=== PATIENT | male | born 1960 | race Caucasian/White ===

== ENCOUNTER → 2018-06-21 06:14 | Outpatient (CLI) | payer OTHER, SELFPAY ==
--- NOTE | 2018-06-21 06:48 | MRI_ITS ---
STUDY: MRI BRAIN WITHOUT CONTRAST REASON FOR EXAM: Male, 57 years old. Dizziness TECHNIQUE: Standardized multiplanar fat and water weighted pulse sequences were obtained. COMPARISON: None. FINDINGS: Normal size of the ventricles and extra-axial spaces for the patient's age. Normal white matter tracts of the supratentorial brain. Normal bilateral basal ganglia. Normal thalami. There is no extra-axial fluid accumulation. Normal flow voids within the major intracranial circulation suggesting patency by spin echo criteria. Normal sella turcica, pituitary gland, infundibular stalk, optic chiasm and hypothalamus. Normal tectal plate and pineal gland. Normal midbrain, nickie and medulla. Normal cerebellum. Normal basal cisterns. Normal bilateral temporal bones. Normal bilateral internal auditory canals. No demonstrated orbital abnormality, within the constraints of a routine brain study. there is a small right maxillary sinus retention cyst.. Normal calvarium and skull base. Normal visualized soft tissue structures. Normal visualized upper cervical spine. MRI/Brain without Contrast IMPRESSION: Normal unenhanced MRI of the brain. Electronically Signed: Andrés Valentine, at 13:16 EDT Tel , Service support ,
--- NOTE | 2018-06-21 07:25 | US_ITS ---
STUDY: ABDOMINAL ULTRASOUND - RIGHT UPPER QUADRANT REASON FOR VISIT: Male, 57 years old. Abdominal pain TECHNIQUE: Ultrasound evaluation of the right upper quadrant was performed with real-time and static amado-scale imaging. TECHNICAL QUALITY: Adequate. COMPARISON: None. FINDINGS: Liver: The liver measures 14.4 cm. There is normal echogenicity of the liver. The bile ducts are within normal limits. There is hepatic color flow. The direction of portal flow is hepatopetal. There is no demonstrated mass lesion. Gallbladder: Normal distended gallbladder. The gallbladder wall measures 3 mm. There is a negative sonographic Dykes's sign. There is no pericholecystic fluid. There are no gallstones. Common Bile Duct (C.B.D.): The common bile duct measures 4 mm. Pancreas: Normal size of the head, body and tail of the pancreas. There is normal echogenicity of the pancreas. There is no demonstrated pancreatic mass or cyst. Right Kidney: Normal size of the right kidney. The right kidney measures 11.5 x 5.3 x 5.0 cm. Normal renal cortex. The right cortex measures 1.8 cm. There is no demonstrated renal mass or cyst. There is no right hydronephrosis. US/Gallbladder IMPRESSION: Normal right upper quadrant ultrasound examination. Electronically Signed: Vito Milton DO at 22:57 EDT Tel [phone], Service support ,
--- NOTE | 2018-06-21 07:25 | CT_ITS ---
STUDY: LOW DOSE CT LUNG CANCER SCREENING REASON FOR EXAM: Male, 57 years old. Cardiovascular disease RADIATION DOSAGE (If Supplied By Facility): CTDIvol = ( 3.02 ) mGy, DLP = ( 116.26 ) mGycm TECHNIQUE: No contrast was administered. Low dose technique was utilized (average mAS-38 and kVp 120). 1.25 mm axial source images with a slice interval of 1.25-mm were reconstructed in lung windows. 2.5 mm axial source images with a slice interval of 2.5-mm were reconstructed in lung windows. 5.0 mm axial source images with a slice interval of 5.0-mm were reconstructed in soft tissue windows. Nodule measured using lung windows on PACS and/or independent workstation with automated measurement of minimum and maximum diameter. Nodule measurement reported as average diameter rounded to the nearest whole number. Growth is defined as an increase ins size of greater than 1.5 mm. COMPARISON: None. FINDINGS: Lung nodules There is a 7 mm calcified peripheral right upper lobe nodule likely representing granuloma. There is a 5 mm right upper lobe subpleural groundglass nodule on image 110. Lungs COPD: Mild. Fibrosis: None. Lymph nodes: None. Other findings: There is mild debris in the right posterior trachea. Pleural space Effusion: None. Calcification: None. Thickening: None. Heart Heart size: Normal. Coronary calcification: Mild. Pericardial effusion: None. Other findings: There is bilateral gynecomastia. Ascending aorta measures 4.3 cm Upper abdomen: None. Thorax: There is multilevel degenerative disc disease. There is anterior fusion of the lower cervical spine.. Base of neck: None. CT/Low Dose CT Lung Screening IMPRESSION: Lung-RADS category 2 - Continue annual screening with LDCT in 12 months. IMPORTANT NOTES FOR USE: ACR Lung-RADS Version 1.0 Assessment Categories Release Date: July 01, 2013 Category: Coded 0-4 bases on nodule(s) with highest degree of suspicion. Negative screen is defined as categories 1 and 2; a positive screen is defined as categories 3 and 4. Category 3 and 4A nodules that are unchanged on interval CT should be coded as category 2, and individuals returned to screening in 12 months. Category 4X: Category 3 or 4 nodules with additional imaging findings that increase the suspicion of lung cancer, such as spiculation, GGN that doubles in size in 1 year, enlarged lymph notes, etc. Category Modifiers: S (significant finding unrelated to lung cancer) and C (prior history of treated lung cancer) may be added to the 0-4 Lung-RADS Electronically Signed: Andrés Valentine, at 9:51 EDT Tel , Service support ,
--- NOTE | 2018-06-21 07:25 | CT_ITS ---
STUDY: CT CHEST WITHOUT CONTRAST REASON FOR EXAM: Male, 57 years old. Calcium scoring, family history of cardiovascular disease RADIATION DOSAGE (If Supplied By Facility): CTDIvol = ( 12.19 ) mGy, DLP = ( 195.04 ) mGycm TECHNIQUE: Transaxial imaging was performed without the administration of intravenous contrast material. Individualized dose optimization techniques were used for this CT. COMPARISON: None. FINDINGS: There is bilateral gynecomastia. Ascending aorta measures 4.3 cm Mild centrilobular and paraseptal emphysema. There is no demonstrated pleural abnormality. Normal heart and pericardium. Normal mediastinum. Normal hilar regions. Normal unenhanced pulmonary arteries. Normal aorta arch and descending thoracic aorta. There are multi-level degenerative changes of the thoracic spine. There is no demonstrated abnormality of the visualized upper abdomen. CT/CCTA Calcium Scoring IMPRESSION: Ascending aorta is aneurysmal measuring 4.3 cm. Small centrilobular paraseptal emphysema. Electronically Signed: Andrés Valentine, at 10:16 EDT Tel , Service support ,
--- NOTE | 2018-06-21 07:25 | CT_ITS ---
STUDY: CT CHEST WITHOUT CONTRAST REASON FOR EXAM: Male, 57 years old. Calcium scoring, family history of cardiovascular disease RADIATION DOSAGE (If Supplied By Facility): CTDIvol = ( 12.19 ) mGy, DLP = ( 195.04 ) mGycm TECHNIQUE: Transaxial imaging was performed without the administration of intravenous contrast material. Individualized dose optimization techniques were used for this CT. COMPARISON: None. FINDINGS: There is bilateral gynecomastia. Ascending aorta measures 4.3 cm Mild centrilobular and paraseptal emphysema. There is no demonstrated pleural abnormality. Normal heart and pericardium. Normal mediastinum. Normal hilar regions. Normal unenhanced pulmonary arteries. Normal aorta arch and descending thoracic aorta. There are multi-level degenerative changes of the thoracic spine. There is no demonstrated abnormality of the visualized upper abdomen. CT/Limited Chest CT w/CCTA IMPRESSION: Ascending aorta is aneurysmal measuring 4.3 cm. Small centrilobular paraseptal emphysema. Electronically Signed: Andrés Valentine, at 10:16 EDT Tel , Service support ,
[2018-06-21 07:52] VITALS: BP 100/66; PULSE 544; RESP 16; O2SAT 99; BMI 24.5
--- NOTE | 2018-06-21 18:27 | CA.SCORE ---
Calcium Scoring Date of Study:: 06/21/18 Coronary Calcium Scoring: High-resolution Computed Tomographic imaging of the chest was performed on 06/21/2018 [ ], with particular attention paid to the coronary arteries. Images from the examination were analyzed for the presence and extent of coronary artery calcification , using coronary calcium quantification software. The patient tolerated the procedure well and there were no complications. The results of the coronary calcification analysis are provided below. - Findings Left Main (LM): 0 Left Anterior Descending (LAD): 26.2 Left Circumflex (LCX): 2.38 Right Coronary Artery (RCA): 74.5 Total Agatston Score: 103.08 - Conclusion Calcium Scoring Interpretation: Calcium Score Interpretation 101-400 Moderate plaque burden Moderate non-obstructive coronary artery disease highly likely.
== END ==
PROVIDERS: Family Provider Internal Medicine; PCP Internal Medicine; Referring Provider Internal Medicine; Visit Provider Internal Medicine
DX: R10.9 Unspecified abdominal pain (principal); R42 Dizziness and giddiness; F17.200 Nicotine dependence, unspecified, uncomplicated; Z82.49 Family history of ischemic heart disease and other diseases of the circulatory system
CPT/HCPCS: 70551; 75571; 76380; 76705; G0297

== ENCOUNTER → 2018-06-29 11:32 | Outpatient (CLI) | payer OTHER, SELFPAY ==
[2018-06-21 07:52] VITALS: BMI 24.5
--- NOTE | 2018-06-29 11:36 | NM_ITS ---
CLINICAL: 57-year-old male with reported history of postprandial abdominal pain. RADIONUCLIDE HEPATOBILIARY SCINTIGRAPHY COMPARISON: Abdominal ultrasound report 06/21/2018 FINDINGS: Following the intravenous administration of 5.5 mCi of 99m Tc Mebrofenin, hepatobiliary images reveal: 1. Relatively prompt and homogeneous radiopharmaceutical concentration is noted by a normal sized liver. No parenchymal defects are identified. 2. Gallbladder activity is identified at 15 minutes post radiopharmaceutical administration. 3. Small intestinal tract is not visualized during 60 minutes of pre-CCK sequential imaging. Small bowel activity is identified following the administration of cholecystokinin. 4. Washout of the radiopharmaceutical by the hepatic parenchyma appears qualitatively normal. Cholecystokinin (0.02 ug/kg) was administered intravenously over a 30-minute period. The post CCK gallbladder ejection fraction calculated at 31 minutes following Cholecystokinin administration was noted to be 41.0 % (normal greater than 35%). During 30 minutes of post CCK imaging, there is no scintigraphic evidence of reflux of the radiotracer into the common hepatic duct or refilling of the gallbladder. NM/Hepatobilliary Img w/Pharm Int IMPRESSION: 1. NORMAL 99m Tc Mebrofenin hepatobiliary imaging examination with Cholecystokinin. A. A gallbladder ejection fraction calculated to be greater than 35% following the administration of Cholecystokinin makes the probability of functional hepatobiliary disease (gallbladder and/or sphincter of Oddi dyskinesia) and/or organic hepatobiliary disease (chronic acalculous cholecystitis and/or cystic duct syndrome) to be low. (Mary Alice Mayorga et al, Journal of Nuclear Medicine 32:1695, 1990). Electronically Signed: Howard Guzman DO at 8:16 EDT Tel , Service support ,
== END ==
PROVIDERS: Family Provider Internal Medicine; PCP Internal Medicine; Referring Provider Internal Medicine; Visit Provider Internal Medicine
DX: R10.9 Unspecified abdominal pain (principal)
CPT/HCPCS: 78227; A9537; J2805

== ENCOUNTER → 2018-07-10 09:20 | Outpatient (CLI) | payer OTHER, SELFPAY ==
[2018-06-21 07:52] VITALS: BMI 24.5
--- NOTE | 2018-07-10 09:29 | NM_ITS ---
CLINICAL: 57-year-old male with reported history of abdominal pain and nausea. SEMI-SOLID PHASE 99m Tc SULFUR COLLOID GASTRIC EMPTYING STUDY COMPARISON: None available FINDINGS: The patient was administered 1.1 mCi of 99m Tc sulfur colloid mixed with oatmeal and consumed per os. Image acquisitions in the anterior-posterior projections for a total of 60 minutes. There is prompt visualization of the stomach. There is no gastroesophageal reflux identified. The T1/2 linear fit was calculated to be 36.15 minutes, (Normal: 12-56 minutes). NM/Gastric Emptying Study IMPRESSION: 1. NORMAL 99m Tc sulfur colloid semi-solid phase (oatmeal) gastric emptying imaging examination. A. There is normal and preserved semi-solid phase gastric emptying compared to normal controls. (Malu et al, J Nucl Med Tech 38: 186, 2010). Electronically Signed: Howard Guzman DO at 23:15 EDT Tel , Service support ,
== END ==
PROVIDERS: Family Provider Internal Medicine; PCP Internal Medicine; Referring Provider Internal Medicine; Visit Provider Internal Medicine
DX: R10.9 Unspecified abdominal pain (principal)
CPT/HCPCS: 78264; A9541

== ENCOUNTER → 2018-07-24 07:30 | Outpatient (CLI) | payer OTHER, SELFPAY ==
[2018-06-21 07:52] VITALS: BMI 24.5
--- NOTE | 2018-07-24 08:55 | RAD_ITS ---
STUDY: X-RAY - ESOPHAGUS (BARIUM SWALLOW) WITH FLUOROSCOPY REASON FOR EXAM: Male, 57 years old. Dysphagia. Gastroesophageal reflux. TECHNIQUE: 14 view(s) of the esophagus were obtained following swallowing of barium. FLUOROSCOPY TIME (if supplied): (0:40) minutes/seconds COMPARISON: None. FINDINGS: There is no demonstrated esophageal foreign body. There is no demonstrated stricture or mucosal abnormality. Normal gastroesophageal junction, without a demonstrated hiatal hernia. The patient ingest a 12 mm tablet that barium without any difficulty. Normal visualized aortic arch and descending thoracic aorta. Normal visualized pulmonary parenchyma. Normal visualized osseous structures of the thorax. RAD/Esophagus Only IMPRESSION: Normal plain film x-ray examination (barium swallow) of the esophagus. Electronically Signed: Swapnil Guajardo, at 14:48 EDT , Service support ,
--- NOTE | 2018-07-25 08:39 | PFT ---
INTRODUCTION: The patient is a 58-year-old male that presents for pulmonary function testing secondary to a diagnosis of dysphasia. Respiratory therapy reports good patient effort. Bronchodilators were used during testing. INTERPRETATION: Forced expiration spirometry demonstrates no evidence of a large airways obstructive ventilatory defect. There was no significant response to aerosolized bronchodilators, based upon strict ATS criteria. Spirograms are of good quality and plateau gradually indicating slow emptying of the lungs. Body plethysmography was performed and reveals lung volumes to be within normal limits. Diffusing capacity by single breath CO is within normal limits as well. IMPRESSION: Normal pulmonary function studies.
== END ==
PROVIDERS: Family Provider Internal Medicine; PCP Internal Medicine; Referring Provider Internal Medicine; Visit Provider Internal Medicine
DX: R13.10 Dysphagia, unspecified (principal); J43.8 Other emphysema
CPT/HCPCS: 74220; 94060; 94726; 94729

== ENCOUNTER → 2018-08-03 07:47 | Outpatient (CLI) | payer OTHER, SELFPAY ==
[2018-06-21 07:52] VITALS: BMI 24.5
[2018-08-03 09:30] LABS: AST(SGOT) 253 U/L (15-37); Alanine Aminotransfer ALT/SGPT 373 U/L (16-61); Albumin, Serum 3.4 g/dL (3.2-5.0); Alkaline Phosphatase 149 U/L (45-117); Bilirubin, Direct 0.54 mg/dL (0.00-0.30); Ferritin 923 ng/mL (26-388); GGTP 492 U/L (15-85); Globulin 3.9 g/dL (2.2-4.2); Protein, Total 7.3 g/dL (6.4-8.2)
[2018-08-04 16:06] LABS: Ceruloplasmin 27.2 mg/dL (16.0-31.0); Hepatitis A IgM Antibody Negative (Negative); Hepatitis B Core AB IgM Positive (Negative)
[2018-08-06 11:08] LABS: Anti-Smooth Muscle ABS 10 Units (0-19); CMV Acute Antibody IgM < 30.0 AU/mL (0.0-29.9); HEPATITIS B SURFACE AG Positive (Negative); Hep C Antibodies 0.1 s/co ratio (0.0-0.9); Transferrin 251 mg/dL (200-370)
[2018-08-07 12:03] LABS: ANTINUCLEAR ANTIBODIES DIRECT Negative (Negative); Anti-Mitochondrial AB <20.0 Units (0.0-20.0)
== END ==
PROVIDERS: Family Provider Internal Medicine; PCP Internal Medicine; Referring Provider Internal Medicine; Visit Provider Internal Medicine
DX: R74.8 Abnormal levels of other serum enzymes (principal); E78.00 Pure hypercholesterolemia, unspecified
CPT/HCPCS: 36415; 80074; 80076; 82390; 82728; 82977; 83516; 84466; 86038; 86645

== ENCOUNTER → 2018-08-07 16:00 | Outpatient (CLI) | payer OTHER, SELFPAY ==
[2018-06-21 07:52] VITALS: BMI 24.5
[2018-08-09 06:07] LABS: Hepatitis B Core Ab Total Positive (Negative)
[2018-08-09 08:27] LABS: HEPATITIS B SURFACE AG Positive (Negative); Hep B Surface Antibodies Non Reactive (.); Hepatitis B Core AB IgM Positive (Negative)
== END ==
PROVIDERS: Family Provider Internal Medicine; PCP Internal Medicine; Referring Provider Internal Medicine Gastroenterology; Visit Provider Internal Medicine Gastroenterology
DX: B19.10 Unspecified viral hepatitis B without hepatic coma (principal)
CPT/HCPCS: 36415; 86704; 86705; 86706; 87340

== ENCOUNTER → 2018-10-03 06:14 | Outpatient (CLI) | payer OTHER, SELFPAY ==
[2018-08-16 14:52] VITALS: BMI 23.8
--- NOTE | 2018-10-03 06:21 | ART_ITS ---
Reason For Study: Claudication Procedure A bilateral lower extremity continuous wave Doppler with analog waveform analysis,segmental pressures,and ankle brachial indexes without exercise. Left Segmental Pressures Left brachial= 130mmHg. Left posterior tibial artery = 151mmHg. Left dorsalis pedis artery = 132mmHg. Right Segmental Pressures Right posterior tibial artery = 142mmHg. Right dorsalis pedis artery = 136mmHg. Indices The right ankle brachial index by the posterior tibial artery is 1.09. The right ankle brachial index by the dorsalis pedis is 1.05. The left ankle brachial index by the posterior tibial artery is 1.16. The left ankle brachial index by the dorsalis pedis is 1.02. Interpretation Summary 1. Bilateral no significant occlussive disease wth GRACE 1.09/1.16. Ordering Physician: Michael Coleman Referring Physician: Michael Coleman Performed By: Brenda Horn RDCS/RVT
--- NOTE | 2018-10-03 06:21 | ECHOD_ITS ---
Reason For Study: Chest Pain Procedure This was a 2D Doppler, Color Flow transthoracic echocardiogram. Exam performed in department. Left Ventricle Normal LV size. Basal septal hypertrophy. Mid cavitary false tendon noted. Left ventricular systolic function is normal. The estimated ejection fraction is 65 %. No evidence for diastolic dysfunction. No regional wall motion abnormalities noted. Right Ventricle Normal RV size. Normal systolic function. Atria Normal left atrium. Normal right atrium. No doppler evidence for ASD. Mitral Valve There is no mitral annular calcification. Mild diffuse mitral valve thickening. Trivial mitral valve insufficiency. Tricuspid Valve Normal tricuspid valve. Trivial tricuspid valve insufficiency. Aortic Valve Trisinus/trileaflet aortic valve. Normal aortic valve. Pulmonic Valve The pulmonic valve is not well visualized. Great Vessels Mildly dilated aortic root. Mildly dilated ascending aorta. Pericardium/Pleural No pericardial effusion. MMode/2D Measurements & Calculations LVIDd: 4.4 cm IVSd: 1.3 cm Ao root diam: 4.0 cm LVIDs: 2.8 cm LVPWd: 1.0 cm LA dimension: 3.6 cm FS: 37.1 % LAV(MOD-bp): 52.0 ml LA A4 area: 15.8 cm2 RA A4 area: 14.4 cm2 LAV(MOD-bp) Indexed: 26.3 ml/m2 LAV(MOD-sp2): 65.9 ml LAV(MOD-sp4): 39.7 ml Time Measurements MV dec time: 0.28 sec Doppler Measurements & Calculations MV E max marco: 61.5 cm/sec Lat Peak E' Marco: 12.8 cm/sec Med Peak E' Marco: 8.3 cm/sec MV A max marco: 56.1 cm/sec E/E' lat: 4.8 E/E' med: 7.4 MV E/A: 1.1 MV V2 max: 73.3 cm/sec MV P1/2t max marco: 73.9 cm/sec Ao V2 max: 92.0 cm/sec MV max P.2 mmHg MV P1/2t: 47.8 msec Ao max P.4 mmHg MV V2 mean: 34.2 cm/sec MV dec slope: 452.7 cm/sec2 MV mean P.57 mmHg MVA(P1/2t): 4.6 cm2 MV V2 VTI: 25.5 cm LV V1 max: 78.1 cm/sec PA V2 max: 83.8 cm/sec LV V1 max P.4 mmHg Interpretation Summary Left ventricular systolic function is normal. The estimated ejection fraction is 65 %. Basal septal hypertrophy. Mid cavitary false tendon noted. Mild diffuse mitral valve thickening. Trivial mitral valve insufficiency. Trivial tricuspid valve insufficiency. Mildly dilated aortic root. Mildly dilated ascending aorta. No evidence for diastolic dysfunction. Ordering Physician: Michael Coleman Performed By: Solo Azul RCS
--- NOTE | 2018-10-03 10:11 | STRESSREP ---
Stress Test Report Date: 04-05-18 Procedure: Exercise tolerance test/imaging study Indications: Chest pain; lightheadedness Consent: Per the patient Procedure: The patient exercised on a Thuan protocol for 9 minutes completing Stage III achieving a peak heart rate of 130 bpm (79 % predicted maximal heart rate) with a peak blood pressure 182/88 mmHg and a peak MET capacity of 10 METs. The baseline ECG demonstrated normal sinus rhythm. The peak exercise ECG demonstrated no obvious ECG changes. There were no cardiac dysrhythmias pretest, during exercise, or recovery. The functional capacity was considered good. There was no complaint of chest discomfort during exercise or recovery. The examination was discontinued secondary to dyspnea and leg discomfort. Impression: 1. Technically adequate (percent predicted maximal heart rate greater than 85%) exercise tolerance test 2. Peak exercise ECG with no obvious ECG changes 3. There were no cardiac dysrhythmias pretest, during exercise, or recovery 4. Nuclear images pending Myocardial perfusion imaging study: Technique: The patient was injected with 11.3 mCi of technetium 99m Cardiolite and subsequently rest SPECT Cardiolite nuclear imaging was obtained in the horizontal long, vertical long, and short axis views. The patient exercised on a Thuan protocol for 9 minutes completing Stage III achieving a peak heart rate of 130 bpm (79 % predicted maximal heart rate) with a peak blood pressure 182/88 mmHg and a peak MET capacity of 10 METs. The patient was injected with 33.6 mCi of technetium 99m Cardiolite and subsequently stress SPECT Cardiolite nuclear imaging was obtained in the horizontal long, vertical long, and short axis views. A gated Cardiolite study at peak stress was obtained. Interpretation: Rest and stress SPECT Cardiolite nuclear imaging status post realignment, normalization, and attenuation correction, demonstrates the appearance of relative uniform tracer uptake and myocardial perfusion appearing within normal limits. There is end systolic thickening and brightening. The gated Cardiolite study demonstrates myocardial thickening and inward wall motion. The reported LVEF is 67 %. Impression: 1. Rest and stress SPECT Cardiolite nuclear imaging demonstrate relative uniform tracer uptake and myocardial perfusion appearing within normal limits. 2. The gated Cardiolite study reports an LVEF of 67 %. This note was generated with [employer] software. It may contain incorrect words, spelling, and punctuation that were not noted in checking the note before signing.
== END ==
PROVIDERS: Family Provider Internal Medicine; PCP Internal Medicine; Referring Provider Internal Medicine Cardiovascular Disease; Visit Provider Internal Medicine Cardiovascular Disease
DX: R93.1 Abnormal findings on diagnostic imaging of heart and coronary circulation (principal); R07.9 Chest pain, unspecified; I71.2 Thoracic aortic aneurysm, without rupture; E78.5 Hyperlipidemia, unspecified
CPT/HCPCS: 78452; 93017; 93306; 93923; A9500; A4216

== ENCOUNTER → 2018-12-18 | Day surgery (SDC) | payer OTHER, SELFPAY ==
[2018-11-20 13:49] VITALS: BMI 24.1
--- NOTE | 2018-12-11 09:04 | RAD_ITS ---
STUDY: X-RAY CHEST REASON FOR EXAM: Male, 58 years old. Preop heart catheterization, chest pain, shortness of breath. TECHNIQUE: PA and lateral views of the chest. COMPARISON: 06/02/2014 FINDINGS: Status post anterior cervical discectomy and fusion lower cervical spine. The lungs are clear and expanded. There is no demonstrated pleural abnormality. Normal size heart. Normal mediastinum and jett. Normal visualized pulmonary arteries. Normal visualized aortic arch and descending thoracic aorta. Normal visualized thoracic spine. Normal visualized ribs, clavicles, and shoulders. There is no demonstrated abnormality of the visualized soft tissue structures of the upper abdomen. RAD/Chest PA and Lateral IMPRESSION: Normal x-ray examination of the chest. Electronically Signed: Howard Roberts MD at 11:56 EDT Tel , Service support ,
[2018-12-11 12:08] LABS: BUN 9 mg/dL (7-18); BUN/Creat Ratio 13.6 RATIO (10-20); Creatinine, Serum 0.66 mg/dL (0.70-1.30); EST Glomerular Filtration Rate 132 mL/min (>60); Est Glom Filt Rate - Afr Amer 160 mL/min (>60); Glucose 85 mg/dL (74-106)
[2018-12-11 12:09] LABS: Anion Gap 6 (5-15); Calcium,Total 8.6 mg/dL (8.5-10.1); Chloride 109 mmol/L (98-107); International Normalized Ratio 1.2; Partial Thromboplast Time 29.5 Seconds (24.1-36.2); Potassium 4.4 mmol/L (3.5-5.1); Prothrombin Time (Protime)PT. 14.9 SECONDS (11.7-14.9); Sodium Level 142 mmol/L (136-145)
[2018-12-11 12:10] LABS: Eosinophils% 0.7 % (0-5); Hematocrit 43.4 % (40-54); Hemoglobin 14.1 g/dL (13.0-16.5); Lymphocyte % 15.3 % (19-41); Mean Corp Hgb Conc 32.5 g/dL (32-36); Mean Corpuscular Hgb 31.7 pg (27.0-32.0); Mean Corpuscular Volume 97.5 fL (80-94); Mean Platelet Vol. 10.3 fl (6.2-12.0); Monocyte% 7.3 % (0-10); Platelet Count 204 K/mm3 (150-450); RBC Distribution Width CV 13.2 % (11.6-14.6); RBC Distribution Width SD 47.5 fl (35.1-43.9); Red Blood Count 4.45 M/mm3 (4.6-6.2); White Blood Count 6.9 K/mm3 (4.4-11.0)
[2018-12-11 12:11] LABS: Basophil% 0.6 % (0-1)
[2018-12-11 12:16] LABS: Absolute Neutrophil Count 5.3 X10^3/uL (2.0-7.7); Lymphocyte # 1.06 X10^3/ul (4.0); Neutrophil # 5.27 X10^3/uL (2.7-7.7)
[2018-12-11 12:17] LABS: Absolute Lymphocyte Count 1.06 X10^3/uL (0.83-4.51); Basophil# 0.04 X10^3/uL; Eosinophil# 0.05 X10^3/uL; Monocyte# 0.51 X10^3/uL
[2018-12-17 09:23] VITALS: BMI 24.1
--- NOTE | 2018-12-18 08:02 | HP.PCM_ITS ---
Problem List (1) Chest pain Status: Acute Qualifiers: (2) Abnormal cardiac CT angiography Status: Acute (3) Aneurysm of ascending aorta Status: Chronic History and Physical Date of Admission: 12/18/18 [facility] [address] [place] [address] OFFICE VISIT Date of Service: 11/20/18 MR#: [id number] Acct: [id number] Name: MARIBEL DEAN Rep #: [id number] : 1960 Provider: AMBER Horn Age/Sex: 58/M Location: [facility] Status: Signed [facility] History of Present Illness Details: This is a 58-year-old white male who presents today for outpatient cardiovascular consultation based upon concerns of an abnormal coronary calcium score, recent diagnosis of a thoracic aortic aneurysm, and concerns of chest discomfort as well as lower extremity discomfort. He denies arm, jaw, or neck discomfort. His exercise tolerance is stable. He denies symptoms of palpitations, lightheadedness, dizziness, near syncope, or syncopal episodes. He denies edema or claudication issues. He denies orthopnea, PND, fever, chills, blood in urine, blood in stool, or myalgia. He states ongoing shortness of breath and fatigue with activity. He acknowledges intermittent chest pain in the evenings when over do it. Intake Vital Signs 11/20/18 Height 5 ft 11 in 11/20/18 Weight: 173 lb 11/20/18 Body Mass Index (BMI) 24.1 11/20/18 Blood Pressure 116/82 H 11/20/18 Blood Pressure Location Lt brachial 11/20/18 Blood Pressure Position Sitting 11/20/18 Respiratory Rate 18 11/20/18 Pulse Rate 70 11/20/18 Pulse Source Monitor 11/20/18 Pulse Ox 99 Intake Visit Reasons: 3 m fu Building Performance Specialist Required: No Accompanied by: None Is patient in pain?: No Allergies No Known Allergies Allergy (Verified 11/20/18 13:49) [facility] Medical History Abnormal cardiac CT angiography (Acute) Aneurysm of ascending aorta (Chronic) GERD (gastroesophageal reflux disease) (Acute) Chest pain (Acute) Abdominal pain (Acute) Dysphagia (Acute) Hepatitis B (Acute) Tobacco abuse (Acute) Anxiety (Chronic) Lung nodule (Chronic) FH: CAD (coronary artery disease) (Inactive) Tobacco dependence (Inactive) Surgical History History of ear surgery (Resolved) History of hernia repair (Resolved) History of neck surgery (Resolved) History of vasectomy (Resolved) Family History Mother CAD (coronary artery disease) Myocardial infarction Sister Diabetes Father CAD (coronary artery disease) Myocardial infarction Social History (Updated 11/21/18 @ 08:26 by AMBER Couch) Smoking Status: Current every day smoker alcohol intake: current details: occasional substance use type: does not use caffeine: Yes Type: carbonated beverages Number of servings: 1 ROS Const Const: Positive for fatigue; negative for weakness, body ache, fever(s) or chills ENT ENT: Negative for dizziness Cardio Chest Pain: Yes Palpitations: No Edema: None Muscle aches with walking: None Resp Respiratory: Positive for SOB with activity; negative for SOB at rest, SOB orthopnea\SOB lying down or paroxysmal nocturnal dyspnea GI GI: Negative nausea, vomiting blood/hematemesis, bright, red blood in stools or black,tarry stools : Negative for hematuria or frequent nighttime urination/ nocturia Musc Musc: Negative for muscle aches/ myalgia Skin Skin: Negative non-healing lesions or rash Neuro Neuro: Negative for dizziness, lightheadedness, near syncope, syncope, orthostatic symptoms or weakness Endo Endo: Positive for fatigue Allergy Allergy/Immunology: Negative for rash Cardiology Exam Const Appearance: cooperative, healthy appearing, comfortable and no acute distress Nutritional Appearance: average body habitus and well nourished Orientation: alert, awake and oriented x3 Head Head: normal to inspection Ears: hearing grossly normal bilaterally Nose: external nose normal Face and Sinus: face symmetric Mouth: oral mucosae normal Eyes General: appearance normal, both eyes and all related structures Eyelids: eyelids normal EOM: EOM intact bilaterally Neck Neck: normal visual inspection and no JVD Carotids: normal carotid upstroke Chest Chest inspection: normal inspection of the chest, symmetric chest movement and normal respiratory effort; negative cough Auscultation: Bilateral: Clear to Auscultation Cardio Rate: regular rate Rhythm: regular rhythm Heart sounds: S1 normal and S2 normal; negative rub, gallop or murmur GI GI: normal to inspection Neuro General: alert, awake, oriented x3 and CN's II-XI intact bilaterally Skin Skin: no rashes or lesions noted Extremities Pulses: Normal: Right Posterior Tibial Pulse, Left Posterior Tibial Pulse, Right Radial Pulse, Left Radial Pulse Lower Extremity Edema: None: Bilateral Psych Psychological: normal affect Assessment & Plan 1. Abnormal cardiac CT angiography R93.1 Plan Patient's cardiovascular CTA scan showed moderate calcification. He underwent a nuclear stress test that was considered negative. His echocardiogram showed preserved ejection fraction with no regional wall motion abnormalities. He continues to have shortness of breath, fatigue, and intermittent chest pain. It will be discussed further with Dr. Coleman in regards to proceeding with a right and left heart catheterization despite normal stress test. Patient will be contacted accordingly based on recommendations. 2. Dyspnea on exertion R06.09 Plan Patient continues to have shortness of breath on exertion. The exact etiology remains unclear. His lung CT scan showed mild COPD. However, his pulmonary function test was within normal limits. As noted above, it will be discussed further with Dr. Coleman. Patient's stress test did not achieve 85% of predicted maximum heart rate. It also noted elevated blood pressure response to exercise. Thus, he may benefit from further medical management. This too will be discussed with Dr. Coleman. He will be referred to pulmonology due to lung CT scan showing mild COPD. This, may be attributing to his dyspnea on exertion as well. Thier input will be greatly appreciated. Orders Referrals: Pulmonary Medicine 3. Aneurysm of ascending aorta I71.[address] scan showed an ascending aorta measuring 4.3 cm. This will be followed over time. We will continue to manage heart rate and blood pressure. His arterial scan was negative for occlusive disease in his lower extremities. Plan Detail Additional Comments Thank you for allowing us to participate in the patients plan of care, if you have any questions please do not hesitate to call. This note was generated using a voice recognition system and there may be incorrect words, spelling or punctuation that were not noted when reviewing the office note prior to saving. Follow Up 6 Months (PFM) Coding Level of Care Code Off vis,est,level [address] angiography R93.1 Dyspnea on exertion R06.09 Aneurysm of ascending aorta I71.2 Coding Level of Care Code Off vis,est,level [address] angiography R93.1 Dyspnea on exertion R06.09 Aneurysm of ascending aorta I71.2 Supplemental Info Supplemental Information Echocardiogram from 10/03/2018: Interpretation Summary Left ventricular systolic function is normal. The estimated ejection fraction is 65 %. Basal septal hypertrophy. Mid cavitary false tendon noted. Mild diffuse mitral valve thickening. Trivial mitral valve insufficiency. Trivial tricuspid valve insufficiency. Mildly dilated aortic root. Mildly dilated ascending aorta. No evidence for diastolic dysfunction. Nuclear stress test: Date: 04-05-18 Procedure: Exercise tolerance test/imaging study Indications: Chest pain; lightheadedness Consent: Per the patient Procedure: The patient exercised on a Thuan protocol for 9 minutes completing Stage III achieving a peak heart rate of 130 bpm (79 % predicted maximal heart rate) with a peak blood pressure 182/88 mmHg and a peak MET capacity of 10 METs. The baseline ECG demonstrated normal sinus rhythm. The peak exercise ECG demonstrated no obvious ECG changes. There were no cardiac dysrhythmias pretest, during exercise, or recovery. The functional capacity was considered good. There was no complaint of chest discomfort during exercise or recovery. The examination was discontinued secondary to dyspnea and leg discomfort. Impression: 1. Technically adequate (percent predicted maximal heart rate greater than 85%) exercise tolerance test 2. Peak exercise ECG with no obvious ECG changes 3. There were no cardiac dysrhythmias pretest, during exercise, or recovery 4. Nuclear images pending Myocardial perfusion imaging study: Technique: The patient was injected with 11.3 mCi of technetium 99m Cardiolite and subsequently rest SPECT Cardiolite nuclear imaging was obtained in the horizontal long, vertical long, and short axis views. The patient exercised on a Thuan protocol for 9 minutes completing Stage III achieving a peak heart rate of 130 bpm (79 % predicted maximal heart rate) with a peak blood pressure 182/88 mmHg and a peak MET capacity of 10 METs. The patient was injected with 33.6 mCi of technetium 99m Cardiolite and subsequently stress SPECT Cardiolite nuclear imaging was obtained in the horizontal long, vertical long, and short axis views. A gated Cardiolite study at peak stress was obtained. Interpretation: Rest and stress SPECT Cardiolite nuclear imaging status post realignment, normalization, and attenuation correction, demonstrates the appearance of relative uniform tracer uptake and myocardial perfusion appearing within normal limits. There is end systolic thickening and brightening. The gated Cardiolite study demonstrates myocardial thickening and inward wall motion. The reported LVEF is 67 %. Impression: 1. Rest and stress SPECT Cardiolite nuclear imaging demonstrate relative uniform tracer uptake and myocardial perfusion appearing within normal limits. 2. The gated Cardiolite study reports an LVEF of 67 %. Calcium Scoring Date of Study:: 06/21/18 Coronary Calcium Scoring: High-resolution Computed Tomographic imaging of the chest was performed on 06/21/2018 [ ], with particular attention paid to the coronary arteries. Images from the examination were analyzed for the presence and extent of coronary artery calcification , using coronary calcium quantification software. The patient tolerated the procedure well and there were no complications. The results of the coronary calcification analysis are provided below. - Findings Left Main (LM): 0 Left Anterior Descending (LAD): 26.2 Left Circumflex (LCX): 2.38 Right Coronary Artery (RCA): 74.5 Total Agatston Score: 103.08 - Conclusion Calcium Scoring Interpretation: Calcium Score Interpretation 101-400 Moderate plaque burden Moderate non-obstructive coronary artery disease highly likely. Chest CT scan: 06/21/2018 Heart Heart size: Normal. Coronary calcification: Mild. Pericardial effusion: None. Other findings: There is bilateral gynecomastia. Ascending aorta measures 4.3 cm Diagnostics Electrocardiogram 08/16/18 Echocardiogram 10/03/18 Stress Test Nuclear Medicine 10/03/18 Stress Test 10/03/[address] 06/21/18 Pulmonary Pulmonary Function Test 07/25/18 11/21/18 0826 <Electronically signed by Shane Sarabia> Date _ Shane CLARK I have re-examined the patient. There are no clinical changes since date of exam.
[2018-12-18 10:36] LABS: Base Excess -3 mmol/L (-2 to +2); Bicarbonate 21.8 mmol/L (22-26); Blood Gas Specimen Type ART; PO2 89 mmHG (75-100); SO2 97 % (95-99); Total Carbon Dioxide 23 mmol/L; pCO2 35.5 mmHg (35-45)
[2018-12-18 10:36] LABS: Blood Gas Specimen Type VEN; VBG BASE EXCESS -2 mmol/L (-1.0-3.5); VBG Bicarbonate 23 mmol/L (22-26); VBG Oxygen Content 24 mmol/L (23-33); VBG PO2 46 mmHg (25-40); VBG SO2 80 % (50-70); VBG pCO2 39.4 mmHg (41-51); VBG pH 7.38 (7.32-7.42)
[2018-12-18 10:36] LABS: Blood Gas Specimen Type VEN; VBG BASE EXCESS -2 mmol/L (-1.0-3.5); VBG Bicarbonate 23 mmol/L (22-26); VBG Oxygen Content 24 mmol/L (23-33); VBG PO2 43 mmHg (25-40); VBG SO2 77 % (50-70); VBG pCO2 40.3 mmHg (41-51); VBG pH 7.36 (7.32-7.42)
[2018-12-18 10:36] LABS: Blood Gas Specimen Type VEN; VBG BASE EXCESS -2 mmol/L (-1.0-3.5); VBG Bicarbonate 23 mmol/L (22-26); VBG Oxygen Content 24 mmol/L (23-33); VBG PO2 40 mmHg (25-40); VBG SO2 75 % (50-70); VBG pCO2 39.3 mmHg (41-51); VBG pH 7.38 (7.32-7.42)
--- NOTE | 2018-12-18 12:10 | CL.D_ITS ---
Patient Name: MARIBEL DEAN Study Date: 12/18/2018 Performing: Michael Coleman MD Ht: 70.86 inches 180 cm : 1960 Wt: 171.96 lbs 78 kg Age: 58 Gender: male BSA: 1.98 PROCEDURE(S) PERFORMED LV11-UJM/LHC/COR/LV CLINICAL PROFILE AND INDICATIONS Indications: Other: shortness of breath; fatigue; abnormal cardiac CTA / coronary calcium score Heart Failure: None Stress/Imaging Date: 04/05/2018Stress Test with SPECT MPI: Negative Angina Classification Anginal Classification w/in 2 Weeks: CCS IV CAD Presentations: Other: shortness of breath; fatigue CONCLUSIONS Right heart pressures - Normal The patient has normal pulmonary hemodynamics. Intracardiac shunting: None Normal Left Ventricular End Diastolic Pressure Normal LV size, wall motion,and systolic function LVEF: by LV gram 60 % Hoopa Multivessel CAD (non angiographically significant appearing) Aortic Root dilated RECOMMENDATIONS Risk factor modification Medical therapy DESCRIPTION OF PROCEDURE The patient arrived to the procedure lab. The risks and benefits of the procedure as well as a full d escription of our services here and current unavailability of surgical backup were fully explained to the patient and/or their significant other prior to the catheterization. The Timeout was completed, verifying the correct patient and procedure. The patient's procedural site was prepped and draped in the usual fashion. Local anesthetic was given subcutaneously to right groin region with Lidocaine 2%. Using a modified Seldinger technique, arterial access was obtained via the right femoral artery, a 4 Fr sheath was inserted Venous access was obtained via the right femoral vein, a 7Fr sheath was insert ed. O2 saturations were then obtained. A 7Fr thermal dilution catheter was inserted and right heart p ressures were recorded, it was then advanced to PA position for cardiac outputs. Thermal dilution car diac outputs were then recorded. Left Ventriculography was performed in CHOWDARY projection using a 4 Fr. Pigtail catheter. The Thermal dilution catheter was then removed. Left Coronary Artery selective angiography was performed in multiple views using a 4 Fr. JL5 catheter. Right Coronary Tracy ry selective angiography was then performed in multiple views using a 4 Fr. 3DRC catheter.The arteria l sheath was pulled and manual compression applied until hemostasis is achieved.. The venous sheath w as then pulled and manual compression applied until hemostasis achieved CORONARY ANGIOGRAPHY DOMINANCE: Right Dominant LEFT HEART ASSESSMENT Left Ventricular Ejection Fraction: by LV Gram 60 % Normal LV wall motion Normal Left Ventricular End Diastolic Pressure LVEDP: 6 mmHg RIGHT HEART ASSESSMENT Thermal CO: 3.99 Thermal CI: 2.02 Erick CO: 8.08 Erick CI: 4.08 PW: 05/04 1 PA: 17/5 9 RV: 19/-3 0 RA: 32 1 PVR: 160 SVR: 1805 Right Heart pressures - normal Intracardiac shunting: None LEFT MAIN: Angiographically normal LEFT ANTERIOR DESCENDING ARTERY: PROX LAD: Mild luminal irregularities CIRCUMFLEX ARTERY: MID CIRC: Mild calcification, Mild luminal irregularities RIGHT CORONARY ARTERY: PROX RCA: Mild calcification, Mild luminal irregularities MID RCA: eccentric: 10 - 25 % Stenosis VALVE FINDINGS: Normal Aortic Valve function Normal Mitral Valve function AORTIC ROOT: Dilated COMPLICATIONS No Complications PROCEDURE MEDICATIONS Versed 1 mg IV Versed 1 mg IV SUMMARY OF HEMODYNAMIC DATA Time AIR REST ECG 07:53:17 RA 3/2 (1) SV 10:00:12 RV 19/-3, 0 10:00:27 PW 3 (1) PV 10:01:01 PA 17/5 (9) PA 10:01:16 LV 121/-17, 6 10:06:44 PW 9/6 (5) 10:06:44 LV 132/-18, 4 10:06:51 PW 6/6 (5) 10:06:51 LV 118/-15, 6 10:08:06 PW 16/19 (11) 10:08:06 LV 119/-16, 8 10:08:12 PW 23/19 (12) 10:08:12 LV 105/-12, 6 10:08:39 PW 8/7 (6) 10:08:39 LV 115/-14, 6 10:08:45 PW 5/5 (4) 10:08:45 LV 130/-15, 7 10:08:58 LV 120/-14, 7 10:09:04 LVp 121/-19, 6 10:09:07 AOp 128/72 (93) 10:09:12 PA 20/7 (13) 10:09:47 RV 21/-3, 2 10:09:59 RA 3/0 (0) 10:10:11 RA 4/0 (0) 10:10:14 AO 106/76 (91) SA 10:15:36 Type SV CO (l/m) CI (l/m/ HR Time AIR REST Thermal 57.00 3.99 2.02 70 07:53:17 Erick 115.40 8.08 4.08 70 07:53:17 Label % O2 Pres/Loc Time AIR REST AO 97 PV 10:11:36 IVC 80 SV 10:11:43 SVC 77 10:11:47 PA 75 PA 10:11:56 Signed By Michael Coleman MD On 12/18/2018 12:10:29 Michael Coleman MD
== END | disposition home or self-care (01) ==
PROVIDERS: Family Provider Internal Medicine; PCP Internal Medicine; Referring Provider Internal Medicine Cardiovascular Disease; Visit Provider Internal Medicine Cardiovascular Disease
DX: R06.02 Shortness of breath (principal); R53.83 Other fatigue; R94.39 Abnormal result of other cardiovascular function study; I71.2 Thoracic aortic aneurysm, without rupture; K21.9 Gastro-esophageal reflux disease without esophagitis; F17.200 Nicotine dependence, unspecified, uncomplicated
CPT/HCPCS: 36415; 71046; 80048; 82803; 85025; 85610; 85730; 93460; 99152; 99153; J7040; C1751; C1769; C1894; Q9967

== ENCOUNTER → 2019-02-19 12:55 | Outpatient (CLI) | payer OTHER, SELFPAY ==
[2018-12-17 09:23] VITALS: BMI 24.1
[2019-02-20 09:12] LABS: Hepatitis B Surface Antibody Non-Reactive
[2019-02-20 09:15] LABS: Hepatitis B Surface Antigen Reactive (Nonreactive)
== END ==
PROVIDERS: Family Provider Internal Medicine; PCP Internal Medicine; Referring Provider Internal Medicine Gastroenterology; Visit Provider Internal Medicine Gastroenterology
DX: B19.10 Unspecified viral hepatitis B without hepatic coma (principal)
CPT/HCPCS: 36415; 86706; 87340

== ENCOUNTER → 2019-04-10 16:07 | Outpatient (CLI) | payer OTHER, SELFPAY ==
[2018-12-17 09:23] VITALS: BMI 24.1
[2019-04-10 17:44] LABS: Hematocrit 46.1 % (40-54); Hemoglobin 15.1 g/dL (13.0-16.5); Mean Corp Hgb Conc 32.8 g/dL (32-36); Mean Corpuscular Hgb 31.1 pg (27.0-32.0); Mean Corpuscular Volume 95.1 fL (80-94); Platelet Count 214 K/mm3 (150-450); RBC Distribution Width SD 45.8 fl (35.1-43.9); Red Blood Count 4.85 M/mm3 (4.6-6.2); White Blood Count 6.6 K/mm3 (4.4-11.0)
[2019-04-10 17:49] LABS: ALB/GLOB Ratio 0.9 RATIO (0.9-2.4); AST(SGOT) 93 U/L (15-37); Alanine Aminotransfer ALT/SGPT 142 U/L (16-61); Albumin, Serum 3.7 g/dL (3.2-5.0); Alkaline Phosphatase 91 U/L (45-117); Anion Gap 5 (5-15); BUN 11 mg/dL (7-18); BUN/Creat Ratio 15.6 RATIO (10-20); Calcium,Total 9.2 mg/dL (8.5-10.1); Chloride 107 mmol/L (98-107); EST Glomerular Filtration Rate 122 mL/min (>60); Est Glom Filt Rate - Afr Amer 148 mL/min (>60); Globulin 3.9 g/dL (2.2-4.2); Glucose 96 mg/dL (74-106); Protein, Total 7.6 g/dL (6.4-8.2); Sodium Level 139 mmol/L (136-145)
[2019-04-12 15:19] LABS: AFP, Tumor Marker 23.9 ng/mL (0.0-8.3)
== END ==
PROVIDERS: Family Provider Internal Medicine; PCP Internal Medicine; Referring Provider Internal Medicine Gastroenterology; Visit Provider Internal Medicine Gastroenterology
DX: B18.1 Chronic viral hepatitis B without delta-agent (principal)
CPT/HCPCS: 36415; 80053; 82105; 85027

== ENCOUNTER → 2021-07-15 | Outpatient (CLI) | payer OTHER, SELFPAY ==
--- NOTE | 2021-07-14 | LES_PTH ---
PATIENT: MARIBEL DEAN LOC: [facility] U#:[id number] AGE/SX: 60/M ROOM: RE07/15/[address]: Dr. Yayo Hernandez MD : 1960 BED: DIS: 07/15/2021 SPEC #: [id number] RECD: 07/15/21 11:12 STATUS: FIDE REElva #: [id number] GLO: 07/14/21 00:[address]: Yayo Hernandez DEPT: SURGICAL PATHOLOGY RECD BY: Iglesia Manzano ENTERED: 07/15/21 11:13 SP TYPE: Lesion OTHR DR: Dr. 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 AM:eliz 07/16/2021 MICROSCOPIC DESCRIPTION Slides are reviewed. GROSS DESCRIPTION Received in fixative is one container labeled with the patient's name and designated RLL papilloma. The specimen consists of a fragment of ibanez-white skin measuring 0.2 x 0.2 x 0.1 cm. The specimen is totally submitted in one cassette. / SJ:eliz 07/15/2021 TC:1 CPT: 32014
== END | disposition home or self-care (01) ==
LOC: LABSPEC 10:01
PROVIDERS: PCP Internal Medicine; Referring Provider Ophthalmology; Visit Provider Ophthalmology
DX: D21.0 Benign neoplasm of connective and other soft tissue of head, face and neck (principal)
CPT/HCPCS: 88305

== ENCOUNTER → 2021-11-10 | Outpatient (CLI) | payer OTHER, SELFPAY ==
[2021-11-10 18:03] LABS: Prothrombin Time (Protime)PT. 12.6 SECONDS (11.7-14.9)
[2021-11-10 18:04] LABS: Partial Thromboplast Time 29.4 Seconds (24.1-36.2)
[2021-11-10 18:11] LABS: AST(SGOT) 19 U/L (15-37); Alanine Aminotransfer ALT/SGPT 21 U/L (16-61); Albumin, Serum 3.9 g/dL (3.2-5.0); Alkaline Phosphatase 62 U/L (45-117); Anion Gap 7 (5-15); BUN 17 mg/dL (7-18); BUN/Creat Ratio 22.3 RATIO (10-20); Calcium,Total 8.8 mg/dL (8.5-10.1); Chloride 106 mmol/L (98-107); Creatinine, Serum 0.76 mg/dL (0.70-1.30); EST Glomerular Filtration Rate 111 mL/min (>60); Est Glom Filt Rate - Afr Amer 134 mL/min (>60); Globulin 3.9 g/dL (2.2-4.2); Glucose 93 mg/dL (74-106); Protein, Total 7.8 g/dL (6.4-8.2); Sodium Level 139 mmol/L (136-145)
[2021-11-13 17:24] LABS: AFP, Tumor Marker 1.5 ng/mL (0.0-8.4)
== END | disposition home or self-care (01) ==
PROVIDERS: PCP Internal Medicine; Referring Provider Internal Medicine Gastroenterology; Visit Provider Internal Medicine Gastroenterology
DX: B18.1 Chronic viral hepatitis B without delta-agent (principal)
CPT/HCPCS: 36415; 80053; 82105; 85610; 85730

== ENCOUNTER → 2022-05-17 | Outpatient (CLI) | payer OTHER, SELFPAY ==
[2022-05-17 19:05] LABS: ALB/GLOB Ratio 1.2 RATIO (0.9-2.4); AST(SGOT) 15 U/L (15-37); Alanine Aminotransfer ALT/SGPT 25 U/L (16-61); Albumin, Serum 4.1 g/dL (3.2-5.0); Alkaline Phosphatase 64 U/L (45-117); Anion Gap 5 (5-15); BUN 14 mg/dL (7-18); BUN/Creat Ratio 18.8 RATIO (10-20); Calcium,Total 9.4 mg/dL (8.5-10.1); Chloride 107 mmol/L (98-107); Creatinine, Serum 0.74 mg/dL (0.70-1.30); EST Glomerular Filtration Rate 113 mL/min (>60); Est Glom Filt Rate - Afr Amer 137 mL/min (>60); Globulin 3.4 g/dL (2.2-4.2); Glucose 117 mg/dL (74-106); Potassium 4.3 mmol/L (3.5-5.1); Protein, Total 7.5 g/dL (6.4-8.2); Sodium Level 139 mmol/L (136-145)
[2022-05-17 21:00] LABS: Hepatitis B Surface Antigen Preliminary Reactive (Nonreactive)
[2022-05-19 15:33] LABS: AFP, Tumor Marker < 1.8 ng/mL (0.0-8.4)
== END | disposition home or self-care (01) ==
PROVIDERS: PCP Internal Medicine; Referring Provider Internal Medicine Gastroenterology; Visit Provider Internal Medicine Gastroenterology
DX: B18.1 Chronic viral hepatitis B without delta-agent (principal)
CPT/HCPCS: 36415; 80053; 82105; 87340

== ENCOUNTER → 2022-05-27 | Outpatient (CLI) | payer OTHER, SELFPAY ==
--- NOTE | 2022-05-27 10:37 | US_ITS ---
STUDY: ABDOMINAL ULTRASOUND - RIGHT UPPER QUADRANT REASON FOR VISIT: Male, 61 years old CHRONIC HEP B TECHNIQUE: Ultrasound evaluation of the right upper quadrant was performed with real-time and static amado-scale imaging. TECHNICAL QUALITY: Adequate. COMPARISON: June 21, 2018 FINDINGS: Liver: The liver measures 13.6 cm. There is heterogeneous echogenicity of the liver. The bile ducts are within normal limits. There is hepatic color flow. The direction of portal flow is hepatopetal. There is no demonstrated mass lesion. Gallbladder: Normal distended gallbladder. The gallbladder wall measures 2 mm. There is a negative sonographic Dykes''s sign. There is no pericholecystic fluid. There are no gallstones. Common Bile Duct (C.B.D.): The common bile duct measures 4 mm. Pancreas: Normal size of the head, and body of the pancreas. Limited visualization of the tail There is normal echogenicity of the pancreas. There is no demonstrated pancreatic mass or cyst. Right Kidney: Normal size of the right kidney. The right kidney measures 10.7 x 4.7 x 4.9 cm. Normal renal cortex. The right cortex measures 1.6 cm. There is no demonstrated renal mass or cyst. There is no right hydronephrosis. US/Abdomen Limited IMPRESSION: Nonspecific hepatocellular disease.. Limited visualization of the pancreatic tail otherwise unremarkable study Electronically Signed: Wilson Ahuja MD at 17:26 EDT ,
== END | disposition home or self-care (01) ==
PROVIDERS: PCP Internal Medicine; Referring Provider Internal Medicine Gastroenterology; Visit Provider Internal Medicine Gastroenterology
DX: B18.1 Chronic viral hepatitis B without delta-agent (principal)
CPT/HCPCS: 76705